=== PATIENT | male | born 1975 | race African-American/Black ===

== ENCOUNTER → 2017-02-20 | Day surgery (SDC) | payer OTHER ==
[2017-02-20] VITALS (9 sets, daily range): BP systolic 146–166; BP diastolic 89–98
[~2017-02-20] VITALS: Ht 175.3 cm; Wt 113.4 kg
[~2017-02-20] MED LIST: BACTRIM-DS1 EA ORAL; BLEPHAMIDE RIGHT EYE; Bacitracin 50000 Units Vial ONE; Bupivacaine w/Epi 0.25% 30ml Vial INJ ONE; CYCLOBENZAPRINE10 MG ORAL; D5 1/2NS 1,000 ML IV SCH; Dexamethasone 4mg/ml vial ONE; DiphenhydrAMINE 50mg/ml Inj IVP PRN; HYDROmorphone 1mg/ml Carpuject SUBQ PRN; Hydromorphone 0.5mg/0.5ml inj IVP PRN; IBUPROFEN600 MG ORAL; IBUPROFEN800 MG ORAL; KEFLEX500 MG ORAL; Ketamine 500mg Inj ONE; Ketorolac 30mg Inj IV PRN; Ketorolac 30mg Inj ONE; LORazepam Inj 2mg/ml 1ml IV PRN; LR 1000ml 1,000 ML IVLG SCH; LR 1000ml ONE; Lidocaine 1% MPF 10mg/ml 5ml ONE; Metoclopramide 10mg/2ml Inj IVP PRN; Metoclopramide 10mg/2ml Inj ONE; Midazolam 2mg/2ml Inj IVP PRN; Midazolam 2mg/2ml Inj ONE; NKM; NORCO1 E1 ORAL; NS Irrig 1000ml ONE; Nimbex 2mg/ml Inj 10ML IVP ONE; Norco 5mg/325mg tab ORAL PRN; Propofol 10mg/ml 20ml IV ONE; ROBAXIN500 MG PO; Sterile Water Irrig 1000ml IRRIG ONE; Succinylcholine 20mg/ml 10ml vial ONE; TOPROL XL50 MG ORAL; TRAMADOL HCL50 MG ORAL; Tylenol #3 tab (300mg/30mg) ORAL PRN; ceFAZolin 1gm in D5W 55ml IVP ONE; celeBREX 200mg Cap **SURGERY PATIENTS ONLY ORAL ONE; fentaNYL 100 mcg/2 mL IV PRN; fentaNYL 250mcg/5ml ONE; oxyCONTIN 20mg tab ORAL ONE
--- NOTE | 2017-02-20 11:37 | Pre-Procedure Note/Attestation ---
Pre-Procedure Note/Attestation Complete Prior to Procedure Planned Procedure: right Procedure Narrative: elbow removal of hetertrophic assification possible repair triceps tendon Indications for Procedure Pre-Operative Diagnosis: right elbow heterotrophic ossification fracture Attestation I attest that I discussed the nature of the procedure; its benefits; risks and complications; and alternatives (and the risks and benefits of such alternatives ), prior to the procedure, with the patient (or the patient's legal labor representative). I attest that, if there was a reasonable possibility of needing a blood transfusion, the patient (or the patient's legal labor representative) was given the [place] [employer] [facility] standardized written summary, pursuant to the [place] Blood Safety Act ([place] Health and Safety Code # 1645, as amended). I attest that I re-evaluated the patient just prior to the surgery and that there has been no change in the patient's H&P, except as documented below: KENJI KEYES Feb 20, 2017 11:37
--- NOTE | 2017-02-20 13:59 | Anethesia Preoperative Eval ---
Anesthesia Pre-op PMH/ROS General Date of Evaluation: Feb 20, 2017 Anesthesiologist: Steve ASA Score: ASA 2 Mallampati Score Class I : Soft palate, uvula, fauces, pillars visible Class II: Soft palate, uvula, fauces visible Class III: Soft palate, base of uvula visible Class IV: Only hard plate visible Mallampati Classification: Class III Surgeon: John Diagnosis: Right elbow pain Surgical Procedure: Right Anesthesia History: none Family History: no anesthesia problems Allergies: Coded Allergies: No Known Allergies (Unverified , 05/29/12) Medications: see eMAR Past Medical History Cardiovascular: Reports: HTN, Denies: CAD, [place], arrhythmia, other, valve dz Pulmonary: Denies: COPD, BRNE, asthma, other Gastrointestinal/Genitourinary: Denies: CRI, ESRD, GERD, other Neurologic/Psychiatric: Denies: CVA, TIA, dementia, depression/anxiety, other Endocrine: Denies: DM, hypothyroidism, other, steroids HEENT: Denies: [place] (L), [place] (R), cataract (L), cataract (R), glaucoma, other Hematology/Immune: Denies: DVT, anemia, bleeding disorder, other Musculoskeletal/Integumentary: Denies: DDD, DJD, OA, RA, edema, other Other: obesity - morbid PSxH Narrative: Lumbar sx Anesthesia Pre-op Phys. Exam Physician Exam Last Vital Signs Date Time Temp Pulse Resp B/P Pulse Ox O2 Delivery O2 Flow Rate FiO2 02/20/17 10:25 97.9 74 18 156/94 99 Room Air Constitutional: NAD Cardiovascular: RRR Respiratory: CTA Airway Exam Mallampati Score: Class III MO: limited ROM: limited Teeth: intact Anesthesia Pre-op A/P Labs see chart Studies Pre-op Studies: EKG - sr Risk Assessment & Plan Assessment: ASA II Plan: GA Status Change Before Surgery: No Pre-Antibiotics Drug: Ancef 2g Given Within 1 Hr of Incision: Yes GARY GAYTAN M.D. Feb 20, 2017 13:59
--- NOTE | 2017-02-20 15:45 | Operative Note - PDOC ---
Operative Note Operative Note Pre-op Diagnosis: right elbow heterotrophic ossification fracture Procedure: see op report Post-op Diagnosis: same as pre-op plus Operative Findings: consistent w/pre-op dx studies Anesthesia: general Specimen: none Complications: none Condition: stable Estimated Blood Loss: none Implant(s) used?: No KENJI KEYES Feb 20, 2017 15:45
--- NOTE | 2017-02-20 17:00 | Immediate Post-Op Evaluation ---
Immediate Post-Op Evalulation Immediate Post-Op Evalulation Procedure: Excision right elbow ossification, triceps tendon repair Date of Evaluation: Feb 20, 2017 Time of Evaluation: 15:44 IV Fluids: 1L Blood Products: 0 Estimated Blood Loss: 50 Urinary Output: 0 Blood Pressure Systolic: 130 Blood Pressure Diastolic: 91 Pulse Rate: 95 Respiratory Rate: 16 O2 Sat by Pulse Oximetry: 98 Temperature (Fahrenheit): 97.6 Pain Score (1-10): 0 Nausea: No Vomiting: No Complications 0 Patient Status: awake, reacts, patent, none Hydration Status: adequate Drug: Ancef 2g Given Within 1 Hr of Incision: Yes Time Given: 14:15 GARY GAYTAN M.D. Feb 20, 2017 17:00
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
[2017-02-21 09:56] VITALS: BP 146/96
--- NOTE | 2017-02-21 09:56 | 48 Hour Post Anesthesia Eval ---
Post Anesthesia Evaluation Procedure: Excision right elbow ossification, triceps tendon repair Date of Evaluation: Feb 20, 2017 Time of Evaluation: 17:20 Blood Pressure Systolic: 146 0: 96 Pulse Rate: 95 Respiratory Rate: 16 Temperature (Fahrenheit): 97.6 O2 Sat by Pulse Oximetry: 98 Airway: patent Nausea: No Vomiting: No Pain Intensity: 1 Hydration Status: adequate Cardiopulmonary Status: at baseline Mental Status/LOC: patient returned to baseline Post-Anesthesia Complications: 0 Follow-up care needed: ready to discharge GARY GAYTAN M.D. Feb 21, 2017 09:56
== END | disposition home or self-care (01) ==
LOC: SUR 07:30
DX: M67.823 Other specified disorders of tendon, right elbow (principal); S46.211A Strain of muscle, fascia and tendon of other parts of biceps, right arm, initial encounter; W01.0XXA Fall on same level from slipping, tripping and stumbling without subsequent striking against object, initial encounter; Y92.512 Supermarket, store or market as the place of occurrence of the external cause; Y99.9 Unspecified external cause status; I10 Essential (primary) hypertension; E66.01 Morbid (severe) obesity due to excess calories
CPT/HCPCS: 24076; 24341; J0330; J0690; J1100; J1885; J2250; J2405; J2704; J2765; J3010; J3490; J7120; 94003; 94150

== ENCOUNTER 2017-04-25 01:37 | Emergency (ER) | payer MEDICAID, OTHER ==
[~2017-04-25] VITALS: Ht 175.3 cm; Wt 113.4 kg
[~2017-04-25 01:37] MED LIST changes: -Bacitracin 50000 Units Vial ONE; -Bupivacaine w/Epi 0.25% 30ml Vial INJ ONE; -D5 1/2NS 1,000 ML IV SCH; -Dexamethasone 4mg/ml vial ONE; -DiphenhydrAMINE 50mg/ml Inj IVP PRN; -HYDROmorphone 1mg/ml Carpuject SUBQ PRN; -Hydromorphone 0.5mg/0.5ml inj IVP PRN; -Ketamine 500mg Inj ONE; -Ketorolac 30mg Inj IV PRN; -Ketorolac 30mg Inj ONE; -LORazepam Inj 2mg/ml 1ml IV PRN; -LR 1000ml 1,000 ML IVLG SCH; -LR 1000ml ONE; -Lidocaine 1% MPF 10mg/ml 5ml ONE; -Metoclopramide 10mg/2ml Inj IVP PRN; -Metoclopramide 10mg/2ml Inj ONE; -Midazolam 2mg/2ml Inj IVP PRN; -Midazolam 2mg/2ml Inj ONE; -NS Irrig 1000ml ONE; -Nimbex 2mg/ml Inj 10ML IVP ONE; -Norco 5mg/325mg tab ORAL PRN; -Propofol 10mg/ml 20ml IV ONE; -Sterile Water Irrig 1000ml IRRIG ONE; -Succinylcholine 20mg/ml 10ml vial ONE; -Tylenol #3 tab (300mg/30mg) ORAL PRN; -ceFAZolin 1gm in D5W 55ml IVP ONE; -celeBREX 200mg Cap **SURGERY PATIENTS ONLY ORAL ONE; -fentaNYL 100 mcg/2 mL IV PRN; -fentaNYL 250mcg/5ml ONE; -oxyCONTIN 20mg tab ORAL ONE
[2017-04-25] MEDS ORDERED: NKM (01:54)
[2017-04-25 02:00] VITALS: BP 153/91
[2017-04-25] MEDS ORDERED: IBUPROFEN600 MG ORAL (02:24)
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
[2017-04-25 03:18] VITALS: BP 153/91
--- NOTE | 2017-04-25 08:34 | Diagnostic Imaging Report ---
Indication: Back pain Comparison: None Findings: 3 views of the lumbar spine were obtained. L3-4, L4-5 and L5-S1 narrowing of intervertebral disks and associated endplate and Facet osteophytes are present. No malalignment identified. No acute fracture definitely seen. Impression: Mild spondylosis. No acute injury appreciated. Limited study due to artifacts
[2017-04-25] MEDS ORDERED: ACETAMINOPHEN-1 EAC1 ORAL (12:17)
== END 2017-04-25 03:18 | disposition home or self-care (01) ==
LOC: EMR 02:05
DX: S39.012A Strain of muscle, fascia and tendon of lower back, initial encounter (principal); V44.5XXA Car driver injured in collision with heavy transport vehicle or bus in traffic accident, initial encounter; Y92.410 Unspecified street and highway as the place of occurrence of the external cause; I10 Essential (primary) hypertension; M47.816 Spondylosis without myelopathy or radiculopathy, lumbar region
CPT/HCPCS: 72110; 99283

== ENCOUNTER 2017-04-25 11:02 | Emergency (ER) | payer MEDICAID ==
[~2017-04-25] VITALS: Ht 175.3 cm; Wt 113.4 kg
[2017-04-25 11:12] VITALS: BP 138/87
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
[2017-04-25] MEDS ORDERED: ACETAMINOPHEN-1 EAC1 ORAL (12:17)
[2017-04-25 12:34] VITALS: BP 138/87
--- NOTE | 2017-04-26 11:10 | Diagnostic Imaging Report ---
Indication: Pain Findings: 3 views of the right elbow were obtained. No acute fractures, malalignment, erosions or periostitis are identified. Bone mineralization is within normal limits. Soft tissues swelling noted in the area of the olecranon. There is some irregularity at the triceps tendon insertion. Avulsion injury or tendinopathy could be present. Please correlate clinically Impression: Triceps insertional tendinopathy versus avulsion injury. Soft tissue swelling noted. Please correlate clinically
== END 2017-04-25 12:34 | disposition home or self-care (01) ==
LOC: EMR 11:30
DX: S42.401A Unspecified fracture of lower end of right humerus, initial encounter for closed fracture (principal); V49.40XA Driver injured in collision with unspecified motor vehicles in traffic accident, initial encounter; Y92.410 Unspecified street and highway as the place of occurrence of the external cause; M25.562 Pain in left knee; I10 Essential (primary) hypertension
CPT/HCPCS: 99283

== ENCOUNTER 2018-01-10 01:16 | Emergency (ER) | payer MEDICAID ==
[~2018-01-10] VITALS: Ht 172.7 cm; Wt 117.9 kg
[~2018-01-10 01:16] MED LIST changes: +ACETAMINOPHEN-1 EAC1 ORAL
[2018-01-10] MEDS ORDERED: DiphenhydrAMINE 50mg/ml Inj IVP ONE (01:45)
[2018-01-10] MEDS ORDERED: Solu-MEDROL 125mg Inj IVP ONE (01:45)
--- NOTE | 2018-01-10 01:52 | Emergency Room Report ---
History of Present Illness General Chief Complaint: General Complaint Source: Patient Present Illness HPI This is a 42-year-old male with a history high blood pressure. He presents with chief complaint of lip swelling. Onset around 5 PM. Worsen since then. No tongue edema. No respiratory complaint. He just started on lisinopril for his blood pressure. It was only his second day. He noticed small amount of swelling at 5 PM when he woke up area and bite 10 PM the whole lip was swollen. Hasn't gotten worse since then. Allergies: Coded Allergies: No Known Allergies (Unverified , 05/29/12) Patient History Past Medical History: see triage record, old chart reviewed, HTN Past Surgical History: none Pertinent Family History: none Social History: Denies: smoking Immunizations: other Reviewed Nursing Documentation: PMH: Agreed; PSxH: Agreed Nursing Documentation-PMH Hx Cardiac Problems: No Hx Hypertension: Yes Hx Cancer: No Hx Gastrointestinal Problems: No Hx Neurological Problems: No Review of Systems Eye: Denies: eye pain, blurred vision ENT: Denies: ear pain, nose congestion, throat swelling Respiratory: Denies: cough, shortness of breath Cardiovascular: Denies: chest pain, palpitations Gastrointestinal: Denies: abdominal pain, diarrhea, nausea, vomiting Musculoskeletal: Denies: back pain, joint pain Skin: Denies: rash Neurological: Denies: headache, numbness Endocrine: Denies: increased thirst, increased urine Hematologic/Lymphatic: Denies: easy bruising All Other Systems: negative except mentioned in HPI Physical Exam Vital Signs Date Time Temp Pulse Resp B/P (MAP) Pulse Ox O2 Delivery O2 Flow Rate FiO2 01/10/18 01:20 98.0 74 18 152/99 98 Room Air 98.1 vitals with high blood pressure Sp02 EP Interpretation: reviewed, normal General Appearance: well appearing, no apparent distress, alert Head: normocephalic, atraumatic Eyes: bilateral eye PERRL, bilateral eye EOMI ENT: hearing grossly normal, normal pharynx, other - soft edema to upper lip. No tongue edema. No stridor. 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 No worse toward a issue of tongue edema. Warm observe until better. If improved, can be discharged. Patient slept for several hours. No worsening of his angioedema. No tongue edema. Swelling better. We'll discharge home. We'll switch to a different class of blood pressure medication. Lab Results Impression LABS UNREMARKABLE. Last Vital Signs Date Time Temp Pulse Resp B/P (MAP) Pulse Ox O2 Delivery O2 Flow Rate FiO2 01/10/18 01:20 98.0 74 18 152/99 98 Room Air 98.1 Status: improved Disposition: HOME, SELF-CARE Condition: Stable Scripts Amlodipine Besylate (Norvasc) 10 Mg Tablet 10 MG ORAL DAILY, #90 TAB Prov: LUDMILA WARD M.D. 01/10/18 Additional Instructions: Stop your lisinopril. You're now allergic to GAIL inhibitor blood pressure medication. Follow-up your doctor in a week. Return if symptom worsen. LUDMILA WARD M.D. January 10, 2018 01:52
[2018-01-10 02:05] LABS: APPEARANCE,URINE CLEAR; BILIRUBIN, URINE NEGATIVE (NEGATIVE); GLUCOSE, URINE (UA) NEGATIVE (NEGATIVE); KETONES,URINE NEGATIVE (NEGATIVE); LEUKOCYTE ESTERASE ,URINE 1+ (NEGATIVE); NITRITE,URINE NEGATIVE (NEGATIVE); PH,URINE 6 (4.5-8.0); PROTEIN,URINE 1+ (NEGATIVE); UROBILINOGEN,URINE 1 MG/DL (0.0-1.0)
[2018-01-10 02:07] LABS: BASOPHILS % (AUTO) 1.6 % (0.0-2.0); COLOR,URINE YELLOW; EOSINOPHILS % (AUTO) 1.9 % (0.0-3.0); HEMOGLOBIN 16.5 G/DL (14.2-18.0); LYMPHOCYTES % (AUTO) 43.4 % (20.0-45.0); MEAN CORPUSCULAR VOLUME 83 FL (80-99); MONOCYTES % (AUTO) 7.6 % (1.0-10.0); NEUTROPHILS % (AUTO) 45.5 % (45.0-75.0); PLATELET COUNT 217 K/UL (150-450); RED BLOOD COUNT 5.92 M/UL (4.70-6.10); RED CELL DISTRIBUTION WIDTH 11.9 % (11.6-14.8); WHITE BLOOD COUNT 4.9 K/UL (4.8-10.8)
[2018-01-10 02:15] LABS: ANION GAP 9 mmol/L (5-15); BLOOD UREA NITROGEN 11 mg/dL (7-18); CALCIUM 9.1 MG/DL (8.5-10.1); CARBON DIOXIDE 25 MMOL/L (21-32); CHLORIDE 106 MMOL/L (98-107); CREATININE 1.1 MG/DL (0.55-1.30); POTASSIUM 3.9 MMOL/L (3.5-5.1); SODIUM 140 MMOL/L (136-145)
[2018-01-10 04:43] VITALS: BP 144/87
[2018-01-10] MEDS ORDERED: NORVASC10 MG ORAL (04:54)
[2018-01-10 05:55] VITALS: BP 144/87
== END 2018-01-10 05:55 | disposition home or self-care (01) ==
LOC: EMR 02:54
DX: T78.3XXA Angioneurotic edema, initial encounter (principal); T44.5X5A Adverse effect of predominantly beta-adrenoreceptor agonists, initial encounter; I10 Essential (primary) hypertension
CPT/HCPCS: 36415; 80048; 81001; 85025; 96374; 96375; 99283; J1200; J2930; S0028

== ENCOUNTER 2018-07-31 10:57 | Emergency (ER) | payer MEDICAID ==
[~2018-07-31] VITALS: Ht 172.7 cm; Wt 117.9 kg
[~2018-07-31 10:57] MED LIST changes: +NORVASC10 MG ORAL
[2018-07-31] MEDS ORDERED: LISINOPRIL-HCT1 EACH ORAL (11:09)
[2018-07-31 12:29] LABS: APPEARANCE,URINE CLEAR; BILIRUBIN, URINE NEGATIVE (NEGATIVE); COLOR,URINE PALE YELLOW; GLUCOSE, URINE (UA) NEGATIVE (NEGATIVE); KETONES,URINE NEGATIVE (NEGATIVE); LEUKOCYTE ESTERASE ,URINE NEGATIVE (NEGATIVE); NITRITE,URINE NEGATIVE (NEGATIVE); PH,URINE 8 (4.5-8.0); PROTEIN,URINE NEGATIVE (NEGATIVE); UROBILINOGEN,URINE NORMAL MG/DL (0.0-1.0)
[2018-07-31 12:34] LABS: BASOPHILS % (AUTO) 1.7 % (0.0-2.0); EOSINOPHILS % (AUTO) 0.9 % (0.0-3.0); HEMATOCRIT 50.3 % (42.0-52.0); HEMOGLOBIN 16.8 G/DL (14.2-18.0); LYMPHOCYTES % (AUTO) 25.8 % (20.0-45.0); MEAN CORPUSCULAR VOLUME 82 FL (80-99); MONOCYTES % (AUTO) 3.4 % (1.0-10.0); NEUTROPHILS % (AUTO) 68.1 % (45.0-75.0); PLATELET COUNT 235 K/UL (150-450); RED BLOOD COUNT 6.14 M/UL (4.70-6.10); RED CELL DISTRIBUTION WIDTH 11.6 % (11.6-14.8); WHITE BLOOD COUNT 5.5 K/UL (4.8-10.8)
--- NOTE | 2018-07-31 12:39 | Diagnostic Imaging Report ---
EXAM: XR Chest, 1 View CLINICAL HISTORY: CP TECHNIQUE: Frontal view of the chest. COMPARISON: No relevant prior studies available. FINDINGS: Lungs: Unremarkable. No consolidation. Pleural space: Unremarkable. No pneumothorax. Heart: Unremarkable. No cardiomegaly. Mediastinum: Unremarkable. Bones/joints: Unremarkable. IMPRESSION: Normal chest x-ray.
[2018-07-31 12:41] LABS: ANION GAP 6 mmol/L (5-15); BLOOD UREA NITROGEN 17 mg/dL (7-18); CALCIUM 9.9 MG/DL (8.5-10.1); CARBON DIOXIDE 28 MMOL/L (21-32); CHLORIDE 106 MMOL/L (98-107); CREATININE 1.1 MG/DL (0.55-1.30); POTASSIUM 4.2 MMOL/L (3.5-5.1); SODIUM 140 MMOL/L (136-145)
[2018-07-31 12:48] VITALS: BP 129/92
[2018-07-31 12:53] LABS: ALANINE AMINOTRANSFERASE 41 U/L (12-78); ALBUMIN 3.5 G/DL (3.4-5.0); ALBUMIN/GLOBULIN RATIO 0.7 (1.0-2.7); ALKALINE PHOSPHATASE 124 U/L (46-116); ASPARTATE AMINO TRANSFERASE 14 U/L (15-37); BILIRUBIN,TOTAL 0.3 MG/DL (0.2-1.0); CREATINE KINASE 177 U/L (26-308)
--- NOTE | 2018-07-31 13:34 | Emergency Room Report ---
History of Present Illness General Chief Complaint: Hypertension Source: Patient Present Illness HPI Patient presents with mild posterior headache. He has a history of hypertension and has not taken his medication for many days. He checked his blood pressure today and it was elevated at a [employer]. Pain is rated 7/10 , occipital, some pressure and not radiating. Gradual onset. No change in vision. No chest pain, dyspnea, NVD, hematuria, back pain, numbness, weakness. Not on blood thinners, no oncologic problems, no prior kidney disease. No calf pain, edema. No fevers, chills, sore throat. H/O GAIL inhibitor angioedema. However currently taking lisinopril/HCTZ. States had trouble controlling his blood pressure before this combination. Allergies: Coded Allergies: GAIL INHIBITORS (Verified Allergy, Intermediate, Lip Swelling, 01/10/18) Patient History Past Medical History: see triage record Social History: Denies: smoking Social History Narrative at home Reviewed Nursing Documentation: PMH: Agreed; PSxH: Agreed Nursing Documentation-PMH Past Medical History: No History, Except For Hx Cardiac Problems: No Hx Hypertension: Yes Hx Cancer: No Hx Gastrointestinal Problems: No Hx Neurological Problems: No Review of Systems All Other Systems: negative except mentioned in HPI Physical Exam Vital Signs Date Time Temp Pulse Resp B/P (MAP) Pulse Ox O2 Delivery O2 Flow Rate FiO2 07/31/18 11:02 97.7 97 18 175/107 97 Room Air Sp02 EP Interpretation: reviewed, normal General Appearance: well appearing, no apparent distress, GCS 15 Head: normocephalic Eyes: bilateral eye normal inspection, bilateral eye PERRL, bilateral eye Scleral Injection ENT: moist mucus membranes Neck: supple Respiratory: lungs clear, normal breath sounds Cardiovascular #1: regular rate, rhythm Cardiovascular #2: 2+ radial (R) Gastrointestinal: normal inspection, normal bowel sounds, non tender, no mass, non-distended Musculoskeletal: back normal, gait/station normal, normal range of motion Neurologic: alert, oriented x3, database specialist III-XII nml as tested, motor strength/tone normal, DTRs symmetric, sensory intact, cerebellar normal, normal gait, speech normal Psychiatric: mood/affect normal Skin: normal inspection, warm/dry Medical Decision Making Diagnostic Impression: Primary Impression: Hypertension Qualified Codes: I10 - Essential (primary) hypertension ER Course Patient presents with "mild" headache and HTN with non-compliance. DDX: HTN, HTN urgency, renal failure, non-compliance amongst others. Based on exam, CT not indicated for headache. Will treat with Norvasc and HCTZ. We will not use GAIL inhibitor as h/o angioedema in past. Will also treat headache. Will check EKG, CXR and labs. EKG without injury. CXR unremarkable. Labs CBC and CMP normal. BP improved. Discussed problem with GAIL inhibitors and need to change. He seems to understand. Also discussed need for better compliance. Patient stable for outpatient observation and treatment. Laboratory Tests Test 07/31/18 11:53 White Blood Count 5.5 K/UL (4.8-10.8) Red Blood Count 6.14 M/UL (4.70-6.10) H Hemoglobin 16.8 G/DL (14.2-18.0) Hematocrit 50.3 % (42.0-52.0) Mean Corpuscular Volume 82 FL (80-99) Mean Corpuscular Hemoglobin 27.3 PG (27.0-31.0) Mean Corpuscular Hemoglobin Concent 33.4 G/DL (32.0-36.0) Red Cell Distribution Width 11.6 % (11.6-14.8) Platelet Count 235 K/UL (150-450) Mean Platelet Volume 8.4 FL (6.5-10.1) Neutrophils (%) (Auto) 68.1 % (45.0-75.0) Lymphocytes (%) (Auto) 25.8 % (20.0-45.0) Monocytes (%) (Auto) 3.4 % (1.0-10.0) Eosinophils (%) (Auto) 0.9 % (0.0-3.0) Basophils (%) (Auto) 1.7 % (0.0-2.0) Urine Color Pale yellow Urine Appearance Clear Urine pH 8 (4.5-8.0) Urine Specific [place] 1.015 (1.005-1.035) Urine Protein Negative (NEGATIVE) Urine Glucose (UA) Negative (NEGATIVE) Urine Ketones Negative (NEGATIVE) Urine Blood Negative (NEGATIVE) Urine Nitrite Negative (NEGATIVE) Urine Bilirubin Negative (NEGATIVE) Urine Urobilinogen Normal MG/DL (0.0-1.0) Urine Leukocyte Esterase Negative (NEGATIVE) Sodium Level 140 MMOL/L (136-145) Potassium Level 4.2 MMOL/L (3.5-5.1) Chloride Level 106 MMOL/L (98-107) Carbon Dioxide Level 28 MMOL/L (21-32) Anion Gap 6 mmol/L (5-15) Blood Urea Nitrogen 17 mg/dL (7-18) Creatinine 1.1 MG/DL (0.55-1.30) Estimate Glomerular Filtration Rate > 60 mL/min (>60) Glucose Level 101 MG/DL (74-106) Calcium Level 9.9 MG/DL (8.5-10.1) Total Bilirubin 0.3 MG/DL (0.2-1.0) Aspartate Amino Transferase (AST) 14 U/L (15-37) L Alanine Aminotransferase (ALT) 41 U/L (12-78) Alkaline Phosphatase 124 U/L (46-116) H Total Creatine Kinase 177 U/L (26-308) Troponin I 0.001 ng/mL (0.000-0.056) Pro-B-Type Natriuretic Peptide 9 pg/mL (0-125) Total Protein 8.2 G/DL (6.4-8.2) Albumin 3.5 G/DL (3.4-5.0) Globulin 4.7 g/dL Albumin/Globulin Ratio 0.7 (1.0-2.7) L EKG Diagnostic Results Rate: normal Rhythm: NSR ST Segments: no acute changes - NSSTTW changes Rhythm Strip Diag. Results EP Interpretation: yes Rhythm: NSR, no PVC's, no ectopy Chest X-Ray Diagnostic Results Chest X-Ray Diagnostic Results : Chest X-Ray Ordered: Yes # of Views/Limited/Complete: 1 View Indication: Other EP Interpretation: Yes Interpretation: no consolidation, no effusion, no pneumothorax Impression: No acute disease Electronically Signed by: He Diaz MD Last Vital Signs Date Time Temp Pulse Resp B/P (MAP) Pulse Ox O2 Delivery O2 Flow Rate FiO2 07/31/18 13:44 98.0 80 18 145/78 100 Room Air Status: improved Disposition: HOME, SELF-CARE Condition: Improved Scripts Triamterene/Hydrochlorothiazide* (DYAZIDE 37.5-25 MG TAB*) 1 Each Tablet 1 TAB ORAL DAILY, #30 TAB Prov: He Diaz MD 12/1/18 Amlodipine Besylate (Norvasc) 10 Mg Tablet 10 MG ORAL DAILY, #30 TAB Prov: He Diaz MD 07/31/18 Referrals: NOT CHOSEN IPA/,REFERRING (PCP) He Diaz MD Jul 31, 2018 13:34
[2018-07-31] MEDS ORDERED: NORVASC10 MG ORAL (13:36)
[2018-07-31] MEDS ORDERED: TRIAMTERENE-HC1 EAC5 ORAL (13:36)
[2018-07-31 13:44] VITALS: BP 145/78
== END 2018-07-31 13:44 | disposition home or self-care (01) ==
LOC: EMR 12:01
DX: I10 Essential (primary) hypertension (principal); Z79.899 Other long term (current) drug therapy; Z88.8 Allergy status to other drugs, medicaments and biological substances
CPT/HCPCS: 36415; 71045; 80053; 81003; 82550; 83880; 84484; 85025; 99284

== ENCOUNTER 2019-03-20 14:08 | Emergency (ER) | payer MEDICAID ==
[~2019-03-20] VITALS: Ht 172.7 cm; Wt 122.5 kg
[~2019-03-20 14:08] MED LIST changes: +LISINOPRIL-HCT1 EACH ORAL; +TRIAMTERENE-HC1 EAC5 ORAL
[2019-03-20 14:20] VITALS: BP 148/92
--- NOTE | 2019-03-20 14:22 | NUR ---
ED Nurse Note: pt walked in due to white discharge on penis started 3 days ago, pt stated he had an unprotected sex 2 weeks ago, pt denies pain. pt able to give urine sample. will continue to monitor.
[2019-03-20] MEDS ORDERED: Azithromycin 250mg tab ORAL ONE (15:00)
[2019-03-20] MEDS ORDERED: Lidocaine 1% MPF 10mg/ml 5ml INJ ONE (15:00)
[2019-03-20 15:05] LABS: APPEARANCE,URINE CLEAR; BILIRUBIN, URINE NEGATIVE (NEGATIVE); GLUCOSE, URINE (UA) NEGATIVE (NEGATIVE); KETONES,URINE NEGATIVE (NEGATIVE); LEUKOCYTE ESTERASE ,URINE 2+ (NEGATIVE); NITRITE,URINE NEGATIVE (NEGATIVE); PH,URINE 6.5 (4.5-8.0); PROTEIN,URINE 2+ (NEGATIVE); UROBILINOGEN,URINE 1 MG/DL (0.0-1.0)
[2019-03-20 15:06] LABS: COLOR,URINE YELLOW
--- NOTE | 2019-03-20 15:12 | Emergency Room Report ---
History of Present Illness General Chief Complaint: Male Urogenital Problems Source: Patient Present Illness HPI 43-year-old male presents to the emergency department complaining of new onset of white penile discharge x2 days he also reports some polyuria and mild dysuria he denies testicular pain or swelling he denies pain at this time he reports that onset of symptoms was after having unprotected intercourse. Patient is here to be treated for STDs. Patient denies fevers, chills, joint pain, swollen tender lymph nodes, night sweats, rashes or genital lesions. He denies low back pain. Patient denies any relieving factors at this time and has no other medical complaints. Allergies: Coded Allergies: GAIL INHIBITORS (Verified Allergy, Intermediate, Lip Swelling, 01/10/18) Patient History Past Medical History: see triage record Past Surgical History: none Pertinent Family History: none Reviewed Nursing Documentation: PMH: Agreed; PSxH: Agreed Nursing Documentation-PMH Past Medical History: No History, Except For Hx Cardiac Problems: No Hx Hypertension: Yes Hx Cancer: No Hx Gastrointestinal Problems: No Hx Neurological Problems: No Review of Systems All Other Systems: negative except mentioned in HPI Physical Exam Vital Signs Date Time Temp Pulse Resp B/P (MAP) Pulse Ox O2 Delivery O2 Flow Rate FiO2 03/20/19 14:12 97.0 99 20 148/92 (110) 95 Room Air Sp02 EP Interpretation: reviewed, normal General Appearance: no apparent distress, alert, GCS 15, non-toxic Head: normocephalic, atraumatic Eyes: bilateral eye normal inspection, bilateral eye PERRL ENT: hearing grossly normal, normal voice Neck: full range of motion Respiratory: lungs clear, normal breath sounds, speaking full sentences Cardiovascular #1: regular rate, rhythm Gastrointestinal: non tender, soft, non-distended, no guarding Rectal: deferred Genitourinary: normal inspection, no CVA tenderness, deferred Musculoskeletal: back normal, gait/station normal, normal range of motion, non- tender Neurologic: alert, oriented x3, responsive, motor strength/tone normal, sensory intact, speech normal, grossly normal Psychiatric: judgement/insight normal Lymphatic: no adenopathy Medical Decision Making PA Attestation Dr. Diaz is my supervising Physician whom patient management has been discussed with. Diagnostic Impression: Primary Impression: Penile discharge ER Course [id number] male presents to the emergency department complaining of new onset of white penile discharge x2 days he also reports some polyuria and mild dysuria he denies testicular pain or swelling he denies pain at this time he reports that onset of symptoms was after having unprotected intercourse. Patient is here to be treated for STDs. Patient denies fevers, chills, joint pain, swollen tender lymph nodes, night sweats, rashes or genital lesions. He denies low back pain. Patient denies any relieving factors at this time and has no other medical complaints. Ddx considered but are not limited to UTi , Urethritis, LGV, STI, Stone, Cystitis, prostatitis Vital signs: are WNL, pt. is afebrile H&PE are most consistent with Urethritis ORDERS: - UA : WBC's elevated, few bacteria and few squamous, no nitrites. --G & C culture not ordered as pt. is being treated prophylactically. ED INTERVENTIONS: -250mg Rocephin IM -1g Azithromycin PO -I do not identify an emergent condition at this time. With current presentation , pt. is stable for close outpatient follow up and conservative treatment. D/ w pt. to return promptly to ED with worsening or new symptoms.- Pt. verbalizes' understanding and agreement with proposed treatment plan.proposed treatment plan. DISCHARGE: At this time pt. is stable for d/c to home. Will provide printed patient care instructions, and any necessary prescriptions. Care plan and follow up instructions have been discussed with the patient prior to discharge. Labs Test 03/20/19 14:50 Urine Color Yellow Urine Appearance Clear Urine pH 6.5 (4.5-8.0) Urine Specific [place] 1.015 (1.005-1.035) Urine Protein 2+ (NEGATIVE) Urine Glucose (UA) Negative (NEGATIVE) Urine Ketones Negative (NEGATIVE) Urine Blood Negative (NEGATIVE) Urine Nitrite Negative (NEGATIVE) Urine Bilirubin Negative (NEGATIVE) Urine Urobilinogen 1 MG/DL (0.0-1.0) Urine Leukocyte Esterase 2+ (NEGATIVE) Urine RBC 0-2 /HPF (0 - 0) Urine WBC 15-20 /HPF (0 - 0) Urine Squamous Epithelial Cells Few /LPF (NONE/OCC) Urine Bacteria Few /HPF (NONE) Last Vital Signs Date Time Temp Pulse Resp B/P (MAP) Pulse Ox O2 Delivery O2 Flow Rate FiO2 03/20/19 14:20 97.0 69 20 148/92 95 Room Air Disposition: HOME, SELF-CARE Condition: Stable Patient Instructions: Urethritis, Adult Additional Instructions: Take medications as directed. MAKE SURE YOUR PARTNERS GET TREATED WITH ANTIBIOTICS to prevent becoming re- infected No intercourse for 7-10 days, as you are infectious and can spread the bacterial infection. Follow up with PCP in 3-5 days Return sooner to ED if new symptoms occur, or current symptoms become Rimma Adams Mar 20, 2019 15:12
[2019-03-20 15:29] VITALS: BP 141/82
--- NOTE | 2019-03-20 15:29 | NUR ---
ER DISCHARGE NOTE: Patient is cleared to be discharged per ERMD, pt is aox4, on room air, with stable vital signs. pt was given dc and prescription instructions, pt was able to verbalize understanding, pt id band remove. pt is able to ambulate with steady gait. pt took all belongings.
[2019-03-20 15:30] VITALS: BP 148/92
== END 2019-03-20 15:30 | disposition home or self-care (01) ==
LOC: EMR 14:50
DX: R36.9 Urethral discharge, unspecified (principal); I10 Essential (primary) hypertension; Z88.8 Allergy status to other drugs, medicaments and biological substances; R30.0 Dysuria
CPT/HCPCS: 81003; 87086; 96372; 99283; J0696; Q0144

== ENCOUNTER 2019-10-23 17:02 | Emergency (ER) | payer BC, MEDICAID ==
[~2019-10-23] VITALS: Ht 172.7 cm; Wt 136.1 kg
[2019-10-23 17:10] VITALS: BP 162/105
--- NOTE | 2019-10-23 17:10 | NUR ---
ED Nurse Note: Pt walked in from home d/t urinary frequency/urgency and occassional urinary incontinence x 2 months. Pt denies fever/chills/n/v. Respirations even and unlabored on room air. Vitals stable as documented.
--- NOTE | 2019-10-23 17:21 | NUR ---
ED Nurse Note: urine sent to lab
[2019-10-23 17:56] LABS: APPEARANCE,URINE CLEAR; BILIRUBIN, URINE NEGATIVE (NEGATIVE); COLOR,URINE PALE YELLOW; GLUCOSE, URINE (UA) NEGATIVE (NEGATIVE); KETONES,URINE NEGATIVE (NEGATIVE); LEUKOCYTE ESTERASE ,URINE 1+ (NEGATIVE); NITRITE,URINE NEGATIVE (NEGATIVE); PH,URINE 7 (4.5-8.0); PROTEIN,URINE 1+ (NEGATIVE); UROBILINOGEN,URINE NORMAL MG/DL (0.0-1.0)
--- NOTE | 2019-10-23 18:28 | Emergency Room Report ---
History of Present Illness General Chief Complaint: Male Urogenital Problems Source: Patient Present Illness HPI 44-year-old male presents to the emergency department complaining of urinary frequency and urgency x2 months. Pt. reports on several occasions he had some incontinence due to sudden urge to urinate. Patient reports that he has been noticing that he has a need to urinate approximately 10 times per day. Patient reports he was checked for diabetes and was negative. Patient denies penile discharge, rashes, dysuria, hematuria or dark urine. He denies testicular pain , swelling or tenderness. Patient reports history of high blood pressure and he states he intermittently takes his hydrochlorothiazide. He reports that he drinks approximately 2 cups of coffee per day. He denies back pain, fevers, chills, abdominal pain or tenderness, back pain, constipation or diarrhea. Patient denies having any relieving factors or aggravating factors. He approximates that he tries to drink at least a gallon of water per day. He denies polydipsia. He denies suspicion of STI. Allergies: Coded Allergies: No Known Allergies (Unverified , 10/23/19) Patient History Past Medical History: see triage record, HTN Past Surgical History: none Pertinent Family History: none Reviewed Nursing Documentation: PMH: Agreed; PSxH: Agreed Nursing Documentation-PMH Past Medical History: No History, Except For Hx Cardiac Problems: No Hx Hypertension: Yes Hx Cancer: No Hx Gastrointestinal Problems: No Hx Neurological Problems: No Review of Systems All Other Systems: negative except mentioned in HPI Physical Exam Vital Signs Date Time Temp Pulse Resp B/P (MAP) Pulse Ox O2 Delivery O2 Flow Rate FiO2 10/23/19 17:09 98.4 91 20 169/107 (127) 93 Room Air Sp02 EP Interpretation: reviewed, normal General Appearance: no apparent distress, alert, GCS 15, non-toxic Head: normocephalic, atraumatic Eyes: bilateral eye normal inspection, bilateral eye PERRL ENT: hearing grossly normal, normal voice Neck: full range of motion Respiratory: lungs clear, normal breath sounds, speaking full sentences Cardiovascular #1: regular rate, rhythm Gastrointestinal: normal bowel sounds, non tender, soft, non-distended, no guarding Rectal: deferred Genitourinary: normal inspection, no CVA tenderness Musculoskeletal: normal range of motion, gait/station normal, non-tender Neurologic: alert, motor strength/tone normal, oriented x3, sensory intact, responsive, speech normal Psychiatric: judgement/insight normal Medical Decision Making PA Attestation Dr. Diaz Is my supervising Physician whom patient management has been discussed with. Diagnostic Impression: Primary Impression: Urinary frequency ER Course 44-year-old male presents to the emergency department complaining of urinary frequency and urgency x2 months. Pt. reports on several occasions he had some incontinence due to sudden urge to urinate. Patient reports that he has been noticing that he has a need to urinate approximately 10 times per day. Patient reports he was checked for diabetes and was negative. Patient denies penile discharge, rashes, dysuria, hematuria or dark urine. He denies testicular pain , swelling or tenderness. Patient reports history of high blood pressure and he states he intermittently takes his hydrochlorothiazide. He reports that he drinks approximately 2 cups of coffee per day. He denies back pain, fevers, chills, abdominal pain or tenderness, back pain, constipation or diarrhea. Patient denies having any relieving factors or aggravating factors. He approximates that he tries to drink at least a gallon of water per day. He denies polydipsia. He denies suspicion of STI. Ddx considered but are not limited to UTi , Urethritis, LGV, STI, Stone, Cystitis, prostatitis, bladder spasms. Vital signs: are WNL, pt. is afebrile H&PE are most consistent with Urinary frequency. ORDERS: - UA :WNL ED INTERVENTIONS: D/w pt. results of his UA. The patient follow-up with a urologist for more specialized evaluation and testing of his urinary symptoms. -I do not identify an emergent condition at this time. With current presentation , pt. is stable for close outpatient follow up and conservative treatment. D/ w pt. to return promptly to ED with worsening or new symptoms.- Pt. verbalizes' understanding and agreement with proposed treatment plan.proposed treatment plan. DISCHARGE: At this time pt. is stable for d/c to home. Will provide printed patient care instructions, and any necessary prescriptions. Care plan and follow up instructions have been discussed with the patient prior to discharge. Labs Test 10/23/19 17:15 Urine Color Pale yellow Urine Appearance Clear Urine pH 7 (4.5-8.0) Urine Specific [place] 1.010 (1.005-1.035) Urine Protein 1+ (NEGATIVE) Urine Glucose (UA) Negative (NEGATIVE) Urine Ketones Negative (NEGATIVE) Urine Blood Negative (NEGATIVE) Urine Nitrite Negative (NEGATIVE) Urine Bilirubin Negative (NEGATIVE) Urine Urobilinogen Normal MG/DL (0.0-1.0) Urine Leukocyte Esterase 1+ (NEGATIVE) Urine RBC 0 /HPF (0 - 0) Urine WBC 2-4 /HPF (0 - 0) Urine Squamous Epithelial Cells Occasional /LPF Urine Bacteria Few /HPF (NONE) Last Vital Signs Date Time Temp Pulse Resp B/P (MAP) Pulse Ox O2 Delivery O2 Flow Rate FiO2 10/23/19 17:10 98.4 94 20 162/105 94 Room Air Disposition: HOME, SELF-CARE Condition: Stable Patient Instructions: Urinary Frequency Additional Instructions: Take any previously prescribed medications as directed. Follow up with a Primary Care Provider in 3-5 days For a referral to have UROLOGIST Evaluation, even if your symptoms have resolved. --Please review list of primary care clinics, if you do not already have a primary care provider Return sooner to ED if new symptoms occur, or current symptoms become worse. - Please note that this Emergency Department Report was dictated using [employer] assistant technology software, occasionally this can lead to erroneous entry secondary to interpretation by the dictation equipment. Rimma Adams Oct 23, 2019 18:28
[2019-10-23 18:35] VITALS: BP 159/101
--- NOTE | 2019-10-23 18:35 | NUR ---
ER DISCHARGE NOTE: Patient is cleared to be discharged per ERMD, pt is aox4, on room air, with stable vital signs as documented. pt was given dc and prescription instructions and was able to verbalize understanding, pt id band removed. pt is able to ambulate with steady gait. pt took all belongings.
== END 2019-10-23 18:35 | disposition home or self-care (01) ==
LOC: EMR 17:30
DX: R35.0 Frequency of micturition (principal); I10 Essential (primary) hypertension
CPT/HCPCS: 81001; 99282

== ENCOUNTER 2020-10-06 23:11 | Emergency (ER) | payer BC, MEDICAID ==
[~2020-10-06] VITALS: Ht 172.7 cm; Wt 113.4 kg
[2020-10-06 23:23] VITALS: BP 155/106
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
[2020-10-06] MEDS ORDERED: IBUPROFEN600 M1 ORAL (23:34)
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
[2020-10-06 23:49] VITALS: BP 155/106
--- NOTE | 2020-10-06 23:49 | NUR ---
ED Nurse Note:Pt cleared by health care Provider for discharge. DC instructions/prescription was given and explained to pt and verbalized understanding of teachings. All medical deviecs such as ID band removed. Pt is AAO x4, ambulatory and left with all personal belongings.
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
== END 2020-10-06 23:52 | disposition home or self-care (01) ==
LOC: EMR 23:31
DX: S86.912A Strain of unspecified muscle(s) and tendon(s) at lower leg level, left leg, initial encounter (principal); I10 Essential (primary) hypertension; V73.5XXA Driver of bus injured in collision with car, pick-up truck or van in traffic accident, initial encounter; Y92.411 Interstate highway as the place of occurrence of the external cause
CPT/HCPCS: 99283